=== PATIENT | female | born 1950 | race Caucasian/White ===

== ENCOUNTER → 2018-01-27 | Outpatient (CLI) | payer OTHER, MEDICARE ==
--- NOTE | 2018-01-27 09:22 | CPEKG ---
Heart Rate: 69 RR Interval: 870 P-R Interval: 128 QRSD Interval: 80 QT Interval: 404 QTC Interval: 433 P [place]: 55 QRS [place]: 51 T Wave [place]: 54 EKG Severity - NORMAL ECG - EKG Impression: SINUS RHYTHM EKG Impression: LEFT ATRIAL ENLARGEMENT Electronically Signed By: Chano Duff 27-Jan-2018 11:02:06
== END ==
LOC: FCP 09:03
PROVIDERS: ATTEND Otolaryngology
DX: Z01.810 Encounter for preprocedural cardiovascular examination (principal)